=== PATIENT | female | born 1980 | race Caucasian/White ===

== ENCOUNTER 2018-03-17 13:37 | Emergency (ER) | payer MEDICAID ==
[2018-03-17 14:34] LABS: ABSOLUTE BASOPHILS # (AUTO) 0.1 10^3/uL (0.0-0.2); ABSOLUTE EOSINOPHILS # (AUTO) 0.1 10^3/uL (0.0-0.6); ABSOLUTE LYMPHOCYTES (AUTO) 2.1 10^3/uL (0.5-4.7); ABSOLUTE MONOCYTES (AUTO) 0.6 10^3/uL (0.1-1.4); ABSOLUTE NEUT (AUTO) 3.3 10^3/uL (1.7-8.2); BASOPHILS % (AUTO) 1.1 % (0-2); HEMATOCRIT 40.9 % (36.0-47.0); HEMOGLOBIN 13.9 g/dL (12.0-15.5); LYMPHOCYTES % (AUTO) 34.1 % (13-45); MEAN CORPUSCULAR HEMOGLOBIN 32.2 pg (27.0-33.4); MEAN CORPUSCULAR HGB CONC 34.1 g/dL (32.0-36.0); MEAN CORPUSCULAR VOLUME 94 fl (80-97); MONOCYTES % (AUTO) 10.4 % (3-13); PLATELET COUNT 285 10^3/uL (150-450); RED BLOOD COUNT 4.33 10^6/uL (3.72-5.28); RED CELL DISTRIBUTION WIDTH 12.7 % (11.5-14.0); SEGMENTED NEUTROPHILS % (AUTO) 53.4 % (42-78); TOTAL CELLS COUNTED % (AUTO) 100 %; WHITE BLOOD COUNT 6.2 10^3/uL (4.0-10.5)
--- NOTE | 2018-03-17 14:39 | ER Document Report ---
ED Psych Disorder / Suicide - General Chief Complaint: Psych Problem Stated Complaint: PSYCH EVAL Time Seen by Provider: 03/17/18 14:15 Mode of Arrival: Medic Information source: Patient, Emergency Med Personnel, [facility] Records Notes: This 37-year-old female patient was brought to emergency room by EMS for report of abnormal behavior. Apparently someone called mobile crisis to come see the patient, they were late responding so someone called 911. The patient does not have complaints, and there is no known past psychiatric history. There is no one with her, however from previous visits it appears that she lives in the same apartment complex as her mother. TRAVEL OUTSIDE OF THE [place] IN LAST 30 DAYS: No - Related Data Allergies/Adverse Reactions: Penicillins Allergy (Verified 03/02/16 11:13) Past Medical History - General Information source: Patient, Emergency Med Personnel, [facility] Records Cannot obtain history due to: Uncooperative, Altered mental status - Social History Smoking Status: Current Every Day Smoker Cigarette use (# per day): Yes Chew tobacco use (# tins/day): No Smoking Education Provided: No Drug Abuse: Marijuana Occupation: Unemployed Lives with: Family Family History: None, Arthritis, CAD, Hyperlipidemia, Hypertension, Malignancy - Medical History Medical History: Negative - The only medical history that was acquired from her previous visits is possible psoriasis. The patient will not provide any history. Skin Medical History: Reports Hx Psoriasis Past Surgical History: Reports: Hx Section - 2, Hx Myringotomy - Immunizations Immunizations up to date: No Hx Diphtheria, Pertussis, Tetanus Vaccination: No Physical Exam - Vital signs Vitals: Temp Pulse Resp BP Pulse Ox 98 F 79 16 123/84 97 03/17/18 14:35 03/17/18 14:35 03/17/18 14:35 03/17/18 14:35 03/17/18 14:35 - General General appearance: Other - When I first went in see the patient, she was standing at the sink washing her hands vigorously for quite a long time until I had the nurse stop her and turn off the water. Patient stated "I feel really dirty". She also went on to state it had something to do with her being on her period, but she did not want to say the word. She is quite paranoid, smiles, giggles, tries not to answer questions or looks away. Notes: When asked about smoking history, she eventually asked this I mean in general. I stated no specifically the smoke cigarettes and she reluctantly eventually admitted that she does smoke cigarettes. I next asked her if she smoked marijuana, and she smiled and looked away and tried not to admit something that I already knew was true based on prior ER visit. - HEENT Head: Normocephalic, Atraumatic, Other - The head care has been closely cropped and/or shaved, and it is a poorly done job with quite irregular patches on the occipital area. Eyes: Normal Pupils: PERRL - Respiratory Respiratory status: No respiratory distress Breath sounds: Normal - Cardiovascular Rhythm: Regular Heart sounds: Normal auscultation Murmur: No - Abdominal Inspection: Normal Bowel sounds: Normal Tenderness: Nontender - Back Back: Normal - Extremities General upper extremity: Normal inspection General lower extremity: Normal inspection - Neurological Neuro grossly intact: Yes - Psychological Associated symptoms: Flight of ideas, Labile, Manic, Paranoid, Psychomotor agitation, Uncooperative, Other - Disorganized thought process Course - Vital Signs Vital signs: Temp Pulse Resp BP Pulse Ox 98 F 79 16 123/84 97 03/17/18 14:35 03/17/18 14:35 03/17/18 14:35 03/17/18 14:35 03/17/18 14:35 - Laboratory Result Diagrams: 03/17/18 14:20 03/17/18 14:20 Laboratory results interpreted by me: 03/17/18 14:20 Salicylates < 1.0 L Acetaminophen < 10 L Discharge - Discharge Clinical Impression: Manic psychosis Obsessive compulsive disorder Qualifiers: Obsessive-compulsive disorder type: unspecified Qualified Code(s): F42.9 - Obsessive-compulsive disorder, unspecified Condition: Stable Disposition: PSYCH HOSP/UNIT Referrals: GUTIERREZ GARCIA MD [Primary Care Provider] - Follow up as needed
[2018-03-17 14:56] LABS: ALANINE AMINOTRANSFERASE 24 U/L (9-52); ALBUMIN 4.7 g/dL (3.5-5.0); ALKALINE PHOSPHATASE 56 U/L (38-126); ANION GAP 13 (5-19); ASPARTATE AMINO TRANSFERASE 27 U/L (14-36); BILIRUBIN,DIRECT 0.2 mg/dL (0.0-0.4); BILIRUBIN,TOTAL 1.1 mg/dL (0.2-1.3); BLOOD UREA NITROGEN 12 mg/dL (7-20); CALCIUM 9.7 mg/dL (8.4-10.2); CARBON DIOXIDE 26 mmol/L (22-30); CHLORIDE 102 mmol/L (98-107); GLUCOSE 93 mg/dL (75-110); TOTAL PROTEIN 7.9 g/dL (6.3-8.2)
[2018-03-17 14:57] LABS: ACETAMINOPHEN < 10 ug/mL (10-30); ALCOHOL < 10 mg/dL (NONE DETECTED); SALICYLATE < 1.0 mg/dL (2.0-20.0)
[2018-03-17] MEDS ORDERED: OLANZAPINE 5 MG TABLET PO ONE (15:34)
[2018-03-17] MEDS ORDERED: BENZTROPINE MESYLATE 1 MG TABLET PO SCH (15:45)
--- NOTE | 2018-03-17 16:50 | PSYCHOLOGICAL NOTE ---
Psych Note - Psych Note Psych Note: Reason for Consult: psychosis; manic This 37-year-old female patient was brought to emergency room by EMS for report of abnormal behavior. Apparently someone called mobile crisis to come see the patient, they were late responding so someone called 911. The patient does not have complaints, and there is no known past psychiatric history. There is no one with her, however from previous visits it appears that she lives in the same apartment complex as her mother. Patient is unable to focus on answering any questions. She is unable to complete sentences and quickly changes topics; ie disorganizing and flying of thoughts. Patient is observed demonstrating paranoia with concerns of being controlled. Attending physician noted the patient was repeatedly washing her hands while he was attempting to engage her. Medication recommendations per [facility]'s contracted psychiatrist Dr. Alireza GRAVES are as follows 1. Zyprexa 10 mg once 2. Zyprexa 5 mg twice daily 3. Cogentin 1 mg daily Diagnosis 298.9 (F29) unspecified psychotic episode Impression\plan: Patient is recommended for IVC. Patient is demonstrating disorganized and flight of thought processes. Patient is unable to complete full sentence before moving onto her next thought. Patient's responses often do not make sense and demonstrate a level of paranoia. Medication recommendations have been provided. Dr. Murdock was consulted and the care management this patient; attending physician is agreement with recommendations and disposition.
--- NOTE | 2018-03-17 16:53 | EKG REPORT ---
SEVERITY:- NORMAL ECG - SINUS RHYTHM : Confirmed by: Estuardo Nevarez MD 17-Mar-2018 16:52:20
[2018-03-17 17:24] LABS: APPEARANCE,URINE CLEAR; BILIRUBIN,URINE NEGATIVE (NEGATIVE); COLOR,URINE YELLOW; GLUCOSE, URINE NEGATIVE (NEGATIVE); KETONES,URINE NEGATIVE (NEGATIVE); LEUKOCYTE ESTERASE,URINE NEGATIVE (NEGATIVE); NITRITE,URINE NEGATIVE (NEGATIVE); PROTEIN,URINE NEGATIVE (NEGATIVE); URINE SPECIFIC GRAVITY 1.011
[2018-03-17 17:41] LABS: URINE AMPHETAMINES SCREEN NEGATIVE; URINE BARBITURATES SCREEN NEGATIVE; URINE BENZODIAZEPINES SCREEN NEGATIVE; URINE COCAINE SCREEN NEGATIVE; URINE MARIJUANA (THC) SCREEN NEGATIVE; URINE METHADONE SCREEN NEGATIVE; URINE PHENCYCLIDINE SCREEN NEGATIVE
[2018-03-17] MEDS: OLANZAPINE 5 MG TABLET PO SCH (22:00)
--- NOTE | 2018-03-18 10:06 | ER Document Report ---
Doctor's Note Notes: 03/18/18 10:05 Rounds: Chart reviewed and patient sleeping and did not respond to my calling her name a couple of times so I did not awaken her. Patient is here because of paranoid and psychotic behavior. She shaved her head. Has been started on Zyprexa and Cogentin. Labs are all normal. Vital signs are all normal. Patient appears to be medically stable for transfer or discharge. Maryann Cosme MD
[2018-03-18] MEDS: OLANZAPINE 5 MG TABLET PO SCH (18:27)
[2018-03-18] MEDS ORDERED: BENZTROPINE MESYLATE 1 MG TABLET PO ONE (20:45)
[2018-03-19] MEDS ORDERED: NICOTINE 14 MG/24 HR PATCH.TD24 TD ONE (09:27)
--- NOTE | 2018-03-19 09:28 | ER Document Report ---
Doctor's Note Notes: 03/19/18 09:25 Medical rounds: Chart reviewed and patient interviewed briefly. Vital signs are normal. Laboratory values satisfactory. On examination, the patient is alert and cooperative. Thought processes are still disorganized. She has a strong orthodox preoccupation. She denies any somatic complaints, however she states she thinks she is having nicotine withdrawal, as she was a heavy smoker prior to her admission here. A nicotine patch will be ordered. She remains medically stable.
[2018-03-19] MEDS ORDERED: OLANZAPINE 5 MG TABLET PO SCH (10:00)
--- NOTE | 2018-03-19 10:31 | PSYCHOLOGICAL NOTE ---
Psych Note - Psych Note Psych Note: Reason for Consult: psychosis; manic This 37-year-old female patient was brought to emergency room by EMS for report of abnormal behavior. Apparently someone called mobile crisis to come see the patient, they were late responding so someone called 911. The patient does not have complaints, and there is no known past psychiatric history. There is no one with her, however from previous visits it appears that she lives in the same apartment complex as her mother. Check in with patient conducted: Patient is still demonstrating flight of thought and asking multiple questions of clinician such as "which Chapstick should I use...which one is the right one " and "what will happen if someone sits in first class but is not Classy." Patient still continues to demonstrate some confusion however is able to complete her sentences when speaking with clinician. Patient asked for shower and then is noted to walk into the shower come back out and state I am not doing is here returned the items to his sitter and then walked back into the bathroom. Medication recommendations per [facility]'s contracted psychiatrist Dr. Alireza GRAVES are as follows 1. Please discontinue Zyprexa 5 mg 2. Please start Haldol 5 mg twice daily 3. please continue Cogentin 1 mg daily Diagnosis 298.9 (F29) unspecified psychotic episode Impression\\plan: Patient is recommended to continue IVC. Patient is demonstrating disorganized and flight of thought processes. Patient is unable to complete full sentence before moving onto her next thought. Patient's responses often do not make sense and demonstrate a level of paranoia. Medication recommendations have been provided. Dr. Murdock was consulted and the care management this patient; attending physician is agreement with recommendations and disposition.
[2018-03-19] MEDS: BENZTROPINE MESYLATE 1 MG TABLET PO SCH (12:10)
[2018-03-19] MEDS: HALOPERIDOL 5 MG TABLET PO SCH ×2 (12:13→18:40)
[2018-03-20 08:23] VITALS: BP 120/79
--- NOTE | 2018-03-20 09:37 | ER Document Report ---
Doctor's Note Notes: 03/20/18 09:37 37-year-old female IVC for acute psychotic event. Vital signs have been stable , labs have been stable. The nurses who saw him yesterday stating that she is actually improved. She does still seem to be a little disheveled. We will continue to observe her. 03/20/18 10:16
[2018-03-20] MEDS: BENZTROPINE MESYLATE 1 MG TABLET PO SCH (09:59)
--- NOTE | 2018-03-21 11:16 | PSYCHOLOGICAL NOTE ---
Psych Note - Psych Note Psych Note: Reason for Consult: psychosis; manic This 37-year-old female patient was brought to emergency room by EMS for report of abnormal behavior. Apparently someone called mobile crisis to come see the patient, they were late responding so someone called 911. The patient does not have complaints, and there is no known past psychiatric history. There is no one with her, however from previous visits it appears that she lives in the same apartment complex as her mother. Check in with patient conducted: Patient is quite this morning. Patient is pleasant and greets clinician but appears to still be slightly confused. Clinician spoke with patient's mother who discloses the patient does have substance abuse in her history and is concerned the patient was given a "Xani Bar" 2 weeks ago and has been acting this way since. She disclosed that when the patient shaved her hair on Monday they knew they had to ask for help because she was not getting any better and they are concerned about what she would do next. She denies history of mental health. Medication recommendations per [facility]'s contracted psychiatrist Dr. Alireza GRAVES are as follows 1. Please start Haldol 5 mg twice daily 2. please continue Cogentin 1 mg daily Diagnosis 298.9 (F29) unspecified psychotic episode Impression\\plan: Patient is recommended to continue IVC. Patient was accepted to [facility]; transportation will occur today. Dr. Murdock was consulted and the care management this patient; attending physician is agreement with recommendations and disposition.
== END 2018-03-20 14:10 ==
LOC: ER 13:37
DX: F30.2 Manic episode, severe with psychotic symptoms (principal); F42.9 Obsessive-compulsive disorder, unspecified; F17.210 Nicotine dependence, cigarettes, uncomplicated; F12.10 Cannabis abuse, uncomplicated; Z88.0 Allergy status to penicillin
CPT/HCPCS: 93005; 99285; 36415; 80307 ×4; 84703; 85025; 80053; 81001; 93010; J3490 ×8

== ENCOUNTER 2019-07-31 15:05 | Emergency (ER) | payer MEDICAID, OTHER ==
[2019-07-31 15:11] VITALS: BP 101/63
--- NOTE | 2019-07-31 15:25 | ER Document Report ---
HPI - HPI Patient complains to provider of: med refill Time Seen by Provider: 07/31/19 15:15 Onset: Other - States she does not have enough to get to her visit Quality of pain: No pain Severity: None Pain Level: Denies Context: 39-year-old female presented to ED for complaint of need for refill on the Risperdal and Lexapro. Patient does not have a bottle for the 2 prescriptions and states she did not bring a picture of the bottles. Associated Symptoms: Other - med refill Exacerbated by: Denies Relieved by: Denies Similar symptoms previously: Yes Recently seen / treated by doctor: Yes - ROS ROS below otherwise negative: Yes - CONSTITUTIONAL Constitutional: DENIES: Fever, Chills - EENT EENT: DENIES: Sore Throat, Ear Pain, Nasal Drainage-Clear, Nasal Drainage- Purulent, Congestion, Eye problems - NEURO Neurology: DENIES: Headache, Weakness, Vision blurred, Dizzinesss / Vertigo - CARDIOVASCULAR Cardiovascular: DENIES: Chest pain - RESPIRATORY Respiratory: DENIES: Trouble Breathing, Coughing - GASTROINTESTINAL Gastrointestinal: DENIES: Abdominal Pain, Nausea, Patient vomiting, Diarrhea, Constipation, Black / Bloody Stools - URINARY Urinary: DENIES: Dysuria, Urgency, Frequency - REPRODUCTIVE Reproductive: DENIES: :, Postmenopausal, Abnormal bleeding / discharge - MUSCULOSKELETAL Musculoskeletal: DENIES: Extremity pain, Back Pain, Neck Pain, Swelling - DERM Skin Color: Normal Skin Problems: None Past Medical History - General Information source: Patient - Social History Smoking Status: Current Every Day Smoker Cigarette use (# per day): Yes - Half pack a day Smoking Education Provided: Yes - 4 minutes Frequency of alcohol use: None Drug Abuse: None Occupation: [employer] Lives with: Spouse/Significant other Family History: None, Arthritis, CAD, Hyperlipidemia, Hypertension, Malignancy Patient has suicidal ideation: No Patient has homicidal ideation: No - Past Medical History Cardiac Medical History: Reports: None Pulmonary Medical History: Reports: None EENT Medical History: Reports: None Neurological Medical History: Reports: None Endocrine Medical History: Reports: None Renal/ Medical History: Reports: None Malignancy Medical History: Reports: None GI Medical History: Reports: None Musculoskeletal Medical History: Reports None Skin Medical History: Reports Hx Psoriasis Psychiatric Medical History: Reports: Hx Anxiety, Hx Bipolar Disorder, Hx Depression, Hx Schizophrenia Traumatic Medical History: Reports: None Infectious Medical History: Reports: None Past Surgical History: Reports: Hx Section - 2, Hx Myringotomy - Immunizations Immunizations up to date: No Hx Diphtheria, Pertussis, Tetanus Vaccination: No Vertical Provider Document - CONSTITUTIONAL Agree With Documented VS: Yes Exam Limitations: No Limitations General Appearance: WD/WN, No Apparent Distress - INFECTION CONTROL TRAVEL OUTSIDE OF THE [place] IN LAST 30 DAYS: No - HEENT HEENT: Atraumatic, Normal ENT Exam, Normocephalic, PERRLA - NECK Neck: Normal Inspection, Supple, Thyroid Normal - RESPIRATORY Respiratory: Breath Sounds Normal, No Respiratory Distress, Chest Non-Tender - CARDIOVASCULAR Cardiovascular: Regular Rate, Regular Rhythm, No Murmur - GI/ABDOMEN Gastrointestinal: Abdomen Soft, Abdomen Non-Tender, No Organomegaly, Normal Bowel Sounds - MUSCULOSKELETAL/EXTREMETIES Musculoskeletal/Extremeties: MAEW, FROM, Non-Tender - NEURO Level of Consciousness: Awake, Alert, Appropriate Motor/Sensory: No Motor Deficit, No Sensory Deficit, No Pronator Drift Deep Tendon Reflexes: 2+ - DERM Integumentary: Warm, Dry, No Rash Course - Re-evaluation Re-evalutation: 07/31/19 22:02 She was given a refill for her medications and instructed to follow-up with her mental health provider as instructed and that she would not be getting more refills in the emergency room. Patient verbalized understanding and agreement with treatment plan. - Vital Signs Vital signs: Temp Pulse Resp BP Pulse Ox 97.9 F 70 18 101/63 100 07/31/19 15:09 07/31/19 15:09 07/31/19 15:09 07/31/19 15:09 07/31/19 15:09 Discharge - Discharge Clinical Impression: Medication refill Condition: Stable Disposition: HOME, SELF-CARE Additional Instructions: I have given you a refill on these 2 medications after you brought me in a pictu re of the 2 prescriptions. You will not get anymore refills to the ED. Please be sure to keep your appointment with your mental health provider to get your prescriptions in the future This is a one-time refill and then you need your mental health worker to refill them FOLLOW-UP CARE: If you have been referred to a physician for follow-up care, call the physicians office for an appointment as you were instructed or within the next two days. If you experience worsening or a significant change in your symptoms, notify the physician immediately or return to the Emergency Department at any time for re-evaluation. Prescriptions: Escitalopram Oxalate [Lexapro 10 mg Tablet] 10 mg PO QHS #30 tablet Risperidone [Risperdal] 2 mg PO QPM #30 tablet Referrals: GUTIERREZ GARCIA MD [Primary Care Provider] - Follow up as needed
== END 2019-07-31 15:45 | disposition home or self-care (01) ==
LOC: ER 15:05
DX: Z76.0 Encounter for issue of repeat prescription (principal); F41.9 Anxiety disorder, unspecified; F31.9 Bipolar disorder, unspecified; F17.210 Nicotine dependence, cigarettes, uncomplicated; Z71.6 Tobacco abuse counseling

== ENCOUNTER 2020-03-04 15:19 | Emergency (ER) | payer MEDICAID ==
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
[2020-03-04] MEDS ORDERED: CHLORPROMAZINE HCL INJ 25 MG/1 ML AMPULE IM ONE (16:23)
--- NOTE | 2020-03-04 16:31 | ER Document Report ---
ED Psych Disorder / Suicide - General Chief Complaint: Psych Problem Stated Complaint: IVC W/PAPERS Time Seen by Provider: 03/04/20 15:25 Primary Care Provider: GUTIERREZ GARCIA MD [Primary Care Provider] - Follow up as needed Mode of Arrival: Ambulatory Information source: Patient Notes: Patient presents stating that she was just released from senior care 2 days ago and has not been able to get her medications refilled. Patient was noted to be jumping out in traffic attempting to talk to people in the vehicles. Patient denies any suicidal homicidal ideation. Patient has a history of bipolar disorder and schizoaffective disorder. TRAVEL OUTSIDE OF THE [place] IN LAST 30 DAYS: No - HPI Patient complains to provider of: Agitated, Bizarre behavior. No: Homicidal plan, Suicidal plan Onset: This morning Quality of pain: No pain Suicide Risk Factors: Bipolar. No: Hallucinations Situational problems related to: Legal problems Associated symptoms: Agitated, Restlessness Recently seen / treated by doctor: No - Related Data Allergies/Adverse Reactions: Penicillins Allergy (Verified 03/04/20 15:21) Home Medications: buspirone. Risperdone Past Medical History - General Information source: Patient, Law Enforcement - Social History Smoking Status: Current Every Day Smoker Frequency of alcohol use: Rare Drug Abuse: None Family History: None, Arthritis, CAD, Hyperlipidemia, Hypertension, Malignancy Patient has homicidal ideation: No Renal/ Medical History: Denies: Hx Peritoneal Dialysis Skin Medical History: Reports Hx Psoriasis Psychiatric Medical History: Reports: Hx Anxiety, Hx Bipolar Disorder, Hx Depression, Hx Schizoaffective Disorder Past Surgical History: Reports: Hx Section - 2, Hx Myringotomy - Immunizations Immunizations up to date: No Hx Diphtheria, Pertussis, Tetanus Vaccination: No Review of Systems - Review of Systems Constitutional: No symptoms reported. denies: Recent illness EENT: No symptoms reported Cardiovascular: No symptoms reported Respiratory: No symptoms reported Gastrointestinal: No symptoms reported. denies: Vomiting Genitourinary: No symptoms reported Female Genitourinary: No symptoms reported Musculoskeletal: No symptoms reported. denies: Neck pain Skin: No symptoms reported Hematologic/Lymphatic: No symptoms reported Neurological/Psychological: Other - Erratic behavior. denies: Confusion, Homicidal ideation, Suicidal ideation Physical Exam - Vital signs Vitals: Temp 98.6 F 03/04/20 15:21 - General General appearance: Appears well, Alert In distress: None - HEENT Head: Normocephalic, Atraumatic Eyes: Normal Nasal: Normal Mouth/Lips: Normal Neck: Normal, Supple. No: Meningismus - Respiratory Respiratory status: No respiratory distress Chest status: Nontender Breath sounds: Normal. No: Rales, Rhonchi, Stridor, Wheezing Chest palpation: Normal - Cardiovascular Rhythm: Regular Heart sounds: S1 appreciated, S2 appreciated Murmur: No - Abdominal Inspection: Normal Distension: No distension Tenderness: Nontender - Back Back: Normal, Nontender. No: CVA tenderness - Extremities General upper extremity: Normal inspection, Normal strength General lower extremity: Normal inspection, Normal strength - Neurological Neuro grossly intact: Yes Kia Coma Scale Eye Opening: Spontaneous Kia Coma Scale Verbal: Oriented Cando Coma Scale Motor: Obeys Commands Cando Coma Scale Total: 15 - Psychological Associated symptoms: Agitated, Psychomotor agitation - Skin Skin Temperature: Warm Skin Moisture: Dry Skin Color: Normal Course - Re-evaluation Re-evalutation: 03/04/20 18:01 Patient medically clear for discharge or transfer pending mental health evaluation. Mental health team advises adding Zyprexa 5 mg twice a day, Cogentin 1 mg daily, and Prozac 10 mg daily. 03/05/20 12:08 Patient continues easily agitated with pressured speech pacing in room. Patient requesting a cigarette. Will provide patient with nicotine patch. Patient is medically clear for transfer at this time. Mental health team is arranging for transfer to the [facility] for additional treatment. PHYSICAL EXAMINATION: GENERAL: Well-appearing HEAD: Atraumatic, normocephalic. EYES: sclera anicteric, conjunctiva are normal. ENT: nares patent. Moist mucous membranes. NECK: Normal range of motion, supple without lymphadenopathy LUNGS: CTAB and equal. No wheezes rales or rhonchi. HEART: Regular rate and rhythm without murmurs EXTREMITIES: Normal range of motion, no pitting edema. No cyanosis. BACK: No CVA tenderness NEUROLOGICAL: Cranial nerves grossly intact. Normal gait. PSYCH: Pressured speech, psychomotor agitation SKIN: Warm, Dry, normal turgor, no rashes or lesions noted - Vital Signs Vital signs: Temp Pulse Resp BP Pulse Ox 97.5 F 76 20 95/60 L 100 03/05/20 11:45 03/05/20 11:45 03/05/20 11:45 03/05/20 11:45 03/05/20 11:45 - Laboratory Result Diagrams: 03/04/20 16:15 03/04/20 16:15 Laboratory results interpreted by me: 03/04/20 03/04/20 16:15 16:15 Urine Blood SMALL H Salicylates < 1.0 L Acetaminophen < 10 L Discharge - Discharge Clinical Impression: Manic behavior Schizoaffective disorder Qualifiers: Schizoaffective disorder type: unspecified Qualified Code(s): F25.9 - Schizoaffective disorder, unspecified Bipolar disorder Qualifiers: Active/Remission status: currently active Current bipolar episode type: manic Current episode severity: unspecified Qualified Code(s): F31.10 - Bipolar disorder, current episode manic without psychotic features, unspecified Condition: Good Disposition: OTHER Referrals: GUTIERREZ GARCIA MD [Primary Care Provider] - Follow up as needed
[2020-03-04 16:37] LABS: APPEARANCE,URINE CLEAR; BILIRUBIN,URINE NEGATIVE (NEGATIVE); COLOR,URINE STRAW; GLUCOSE, URINE NEGATIVE (NEGATIVE); KETONES,URINE NEGATIVE (NEGATIVE); LEUKOCYTE ESTERASE,URINE NEGATIVE (NEGATIVE); NITRITE,URINE NEGATIVE (NEGATIVE); PROTEIN,URINE NEGATIVE (NEGATIVE); URINE SPECIFIC GRAVITY 1.003; UROBILINOGEN,URINE NEGATIVE mg/dL (<2.0)
[2020-03-04 16:45] LABS: ABSOLUTE BASOPHILS # (AUTO) 0.1 10^3/uL (0.0-0.2); ABSOLUTE EOSINOPHILS # (AUTO) 0.1 10^3/uL (0.0-0.6); ABSOLUTE LYMPHOCYTES (AUTO) 2.4 10^3/uL (0.5-4.7); ABSOLUTE MONOCYTES (AUTO) 0.5 10^3/uL (0.1-1.4); ABSOLUTE NEUT (AUTO) 4.4 10^3/uL (1.7-8.2); EOSINOPHILS % (AUTO) 1.1 % (0-6); HEMATOCRIT 39.7 % (36.0-47.0); HEMOGLOBIN 13.6 g/dL (12.0-15.5); LYMPHOCYTES % (AUTO) 32.2 % (13-45); MEAN CORPUSCULAR HEMOGLOBIN 31.5 pg (27.0-33.4); MEAN CORPUSCULAR HGB CONC 34.4 g/dL (32.0-36.0); MEAN CORPUSCULAR VOLUME 91 fl (80-97); MONOCYTES % (AUTO) 6.8 % (3-13); PLATELET COUNT 254 10^3/uL (150-450); RED BLOOD COUNT 4.34 10^6/uL (3.72-5.28); RED CELL DISTRIBUTION WIDTH 13.5 % (11.5-14.0); SEGMENTED NEUTROPHILS % (AUTO) 58.9 % (42-78); TOTAL CELLS COUNTED % (AUTO) 100 %; WHITE BLOOD COUNT 7.5 10^3/uL (4.0-10.5)
[2020-03-04 16:46] LABS: URINE AMPHETAMINES SCREEN NEGATIVE; URINE BARBITURATES SCREEN NEGATIVE; URINE BENZODIAZEPINES SCREEN NEGATIVE; URINE COCAINE SCREEN NEGATIVE; URINE MARIJUANA (THC) SCREEN NEGATIVE; URINE METHADONE SCREEN NEGATIVE; URINE PHENCYCLIDINE SCREEN NEGATIVE
[2020-03-04 17:12] LABS: ACETAMINOPHEN < 10 ug/mL (10-30); ALBUMIN 4.6 g/dL (3.5-5.0); ALCOHOL 51 mg/dL (NONE DETECTED); ALKALINE PHOSPHATASE 55 U/L (38-126); ANION GAP 9 (5-19); ASPARTATE AMINO TRANSFERASE 24 U/L (14-36); BILIRUBIN,TOTAL 0.3 mg/dL (0.2-1.3); BLOOD UREA NITROGEN 7 mg/dL (7-20); CALCIUM 9.4 mg/dL (8.4-10.2); CARBON DIOXIDE 27 mmol/L (22-30); CHLORIDE 104 mmol/L (98-107); GLUCOSE 79 mg/dL (75-110); POTASSIUM 4.1 mmol/L (3.6-5.0); SALICYLATE < 1.0 mg/dL (2.0-20.0); TOTAL PROTEIN 7.7 g/dL (6.3-8.2)
[2020-03-04] MEDS ORDERED: OLANZAPINE 5 MG TABLET PO SCH (18:00)
[2020-03-04] MEDS: BENZTROPINE MESYLATE 1 MG TABLET PO SCH (18:40)
[2020-03-04] MEDS ORDERED: OLANZAPINE 5 MG TABLET PO ONE (18:43)
[2020-03-04] MEDS: FLUOXETINE HCL 20 MG/5 ML UDCUP PO SCH (18:54)
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
--- NOTE | 2020-03-04 23:36 | EKG REPORT ---
SEVERITY:- ABNORMAL ECG - SINUS TACHYCARDIA LEFT ATRIAL ABNORMALITY : Confirmed by: Elpidio Madsen 04-Mar-2020 23:35:20
[2020-03-05] MEDS ORDERED: OLANZAPINE 5 MG TABLET PO SCH (10:00)
[2020-03-05] MEDS: FLUOXETINE HCL 20 MG/5 ML UDCUP PO SCH (11:00)
[2020-03-05] MEDS: BENZTROPINE MESYLATE 1 MG TABLET PO SCH (11:00)
[2020-03-05 12:03] VITALS: BP 95/60
[2020-03-05] MEDS ORDERED: NICOTINE 21 MG/24 HR PATCH.TD24 TD ONE (12:07)
== END 2020-03-05 12:43 | disposition other institution (70) ==
LOC: ER 15:19
DX: F20.0 Paranoid schizophrenia (principal); F31.10 Bipolar disorder, current episode manic without psychotic features, unspecified; Z88.0 Allergy status to penicillin
CPT/HCPCS: 93005; 99285; 96372; 36415; 80307 ×4; 84703; 85025; 80053; 81001; 93010; J3490 ×7; J3230

== ENCOUNTER 2020-03-30 18:04 | Emergency (ER) | payer MEDICAID, OTHER ==
[2020-03-30] MEDS ORDERED: HALOPERIDOL LACTATE INJ 5 MG/1 ML VIAL IM ONE (18:27)
[2020-03-30] MEDS ORDERED: LORAZEPAM INJ 2 MG/1 ML VIAL IM ONE (18:28)
[2020-03-30] MEDS ORDERED: DIPHENHYDRAMINE HCL 50 MG/ML VIAL IM ONE (18:28)
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
--- NOTE | 2020-03-30 19:24 | ER Document Report ---
Doctor's Note Notes: 03/30/20 18:15 Met with Patient upon arrival to room 46. She was noted to be in the company of [employer], in handcuffs and leg shackles. [place] advised the Patient is in custody for disorderly conduct and on an $800 secured suarez. Patient was observed to be yelling, screaming, and physically very manic as evidenced by her tangential and disorganized speech, excessive energy levels, and restless, rapid limb movement. She made threats to get a gun and shoot herself if no one would listen to her. She aggressively moved towards this Provider while trying to make a point. Spoke with [place] and advised the Nail Setter would be contacted to assist with request to change secured to unsecured suarez as Patient was being placed on full IVC and it was not conducive to have the deputy stay with the Patient over the next few days while inpatient psychiatric placement was secured. Nail Setter indicated the Patient would be required to sign a release order changing the suarez to unsecured and a deputy could bring it to the hospital for the Patient to sign and return it to the Magistrates office immediately following her signature. Patient will be more fully evaluated upon some stabilization. She has received an as needed medication regiment to assist with calming her down.
[2020-03-30 19:39] LABS: ABSOLUTE BASOPHILS # (AUTO) 0.1 10^3/uL (0.0-0.2); ABSOLUTE EOSINOPHILS # (AUTO) 0.1 10^3/uL (0.0-0.6); ABSOLUTE LYMPHOCYTES (AUTO) 1.3 10^3/uL (0.5-4.7); ABSOLUTE MONOCYTES (AUTO) 0.7 10^3/uL (0.1-1.4); ABSOLUTE NEUT (AUTO) 7.5 10^3/uL (1.7-8.2); BASOPHILS % (AUTO) 0.9 % (0-2); EOSINOPHILS % (AUTO) 0.5 % (0-6); HEMATOCRIT 38.8 % (36.0-47.0); HEMOGLOBIN 13.2 g/dL (12.0-15.5); LYMPHOCYTES % (AUTO) 13.6 % (13-45); MEAN CORPUSCULAR HEMOGLOBIN 31.4 pg (27.0-33.4); MEAN CORPUSCULAR VOLUME 93 fl (80-97); MONOCYTES % (AUTO) 6.8 % (3-13); PLATELET COUNT 290 10^3/uL (150-450); RED CELL DISTRIBUTION WIDTH 13.8 % (11.5-14.0); SEGMENTED NEUTROPHILS % (AUTO) 78.2 % (42-78); TOTAL CELLS COUNTED % (AUTO) 100 %; WHITE BLOOD COUNT 9.6 10^3/uL (4.0-10.5)
[2020-03-30 19:56] LABS: ALBUMIN 4.5 g/dL (3.5-5.0); ALKALINE PHOSPHATASE 47 U/L (38-126); ANION GAP 8 (5-19); ASPARTATE AMINO TRANSFERASE 28 U/L (14-36); BILIRUBIN,TOTAL 0.5 mg/dL (0.2-1.3); BLOOD UREA NITROGEN 16 mg/dL (7-20); CALCIUM 9.3 mg/dL (8.4-10.2); CARBON DIOXIDE 25 mmol/L (22-30); CHLORIDE 104 mmol/L (98-107); GLUCOSE 88 mg/dL (75-110); POTASSIUM 3.7 mmol/L (3.6-5.0); TOTAL PROTEIN 7.6 g/dL (6.3-8.2)
[2020-03-30 20:02] LABS: ACETAMINOPHEN < 10 ug/mL (10-30); ALCOHOL < 10 mg/dL (NONE DETECTED); SALICYLATE < 1.0 mg/dL (2.0-20.0)
--- NOTE | 2020-03-31 01:07 | EKG REPORT ---
SEVERITY:- NORMAL ECG - SINUS RHYTHM : Confirmed by: Beulah Hendrickson MD 31-Mar-2020 01:07:00
[2020-03-31] MEDS ORDERED: HALOPERIDOL LACTATE INJ 5 MG/1 ML VIAL IM ONE (09:58)
[2020-03-31 10:53] LABS: APPEARANCE,URINE TURBID; BILIRUBIN,URINE NEGATIVE (NEGATIVE); GLUCOSE, URINE NEGATIVE (NEGATIVE); KETONES,URINE NEGATIVE (NEGATIVE); LEUKOCYTE ESTERASE,URINE NEGATIVE (NEGATIVE); NITRITE,URINE NEGATIVE (NEGATIVE); PROTEIN,URINE 30 mg/dL (NEGATIVE)
[2020-03-31 11:06] LABS: COLOR,URINE DARK YELLOW; URINE AMPHETAMINES SCREEN UNCONFIRMED POSITIVE; URINE BARBITURATES SCREEN NEGATIVE; URINE BENZODIAZEPINES SCREEN UNCONFIRMED POSITIVE; URINE COCAINE SCREEN NEGATIVE; URINE MARIJUANA (THC) SCREEN NEGATIVE; URINE METHADONE SCREEN NEGATIVE; URINE PHENCYCLIDINE SCREEN NEGATIVE
[2020-03-31] MEDS: BENZTROPINE MESYLATE 1 MG TABLET PO SCH (16:24)
--- NOTE | 2020-03-31 17:39 | ER Document Report ---
Doctor's Note Notes: 03/31/20 17:38 Patient's vital signs and previous labs, diagnostic images reviewed. Reviewed mental health notes, nurse's notes and previous providers notes. VSS. Pt is in no distress at this time. Denies any SI or HI. General: inappropriate Heart: RRR Lungs: CTAB Psych: aggressive A/P: Continue monitoring and rec's per MH. Normal diet Consider placement.
[2020-03-31] MEDS: OLANZAPINE 5 MG TABLET PO SCH (19:45)
[2020-04-01] MEDS ORDERED: HALOPERIDOL LACTATE INJ 5 MG/1 ML VIAL ONE (07:51)
[2020-04-01] MEDS ORDERED: HALOPERIDOL LACTATE INJ 5 MG/1 ML VIAL IM ONE (07:51)
--- NOTE | 2020-04-01 07:57 | ER Document Report ---
Doctor's Note Notes: 04/01/20 07:56 Patient is very aggressive yelling at the staff running in and out of the room stating she does not need to be in the emergency room she needs to be going home. Patient was ordered 5 mg of Haldol IM now.
[2020-04-01] MEDS: BENZTROPINE MESYLATE 1 MG TABLET PO SCH (10:14)
[2020-04-01] MEDS: OLANZAPINE 5 MG TABLET PO SCH ×2 (10:14→17:53)
[2020-04-01] MEDS: RISPERIDONE 0.25 MG TABLET PO SCH ×2 (13:15→17:53)
--- NOTE | 2020-04-01 13:50 | PSYCHOLOGICAL NOTE ---
Psych Note - Psych Note Date seen by psych provider: 03/31/20 Psych Note: Patient is a 39 year old female who presented to the ED last evening via [facility] after legal issues but then presenting manic (screaming, yelling, irritable, pressured speech, flight of ideas). She was subsequently put on a FULL IVC. This morning patient was administered Haldol Intramuscular for additional stabilization. Per attending nurse she was cooperative. UDS positive for Amphetamines and Benzodiazepines (Benzos likely from Ativan administered in ED). DSS/CPS worker Elaine ([phone] office, cell) called and spoke to ED Nurse, stated involvement due to patient's daughter and patient's behav iors. She tried to make a visit but patient's mental state made an interview not possible. ED Nurse noted patient said she took some pills yesterday. Chart review revealed patient has been seen in the ED for mental health before. Her last visit for mental health was at the beginning of the month where she was manic (not to severity of this visit) and had been of medication a couple days. She has a history of Schizoaffective Bipolar Type. Today started placement efforts as it it felt patient will likely need longer duration for stabilization. At 1823 called DSS/CPS worker's cell phone. No answer. Got voice mail. Left message explaining current plan of care: IVC, seeking placement and scheduled medications started. Clinical Impression: Ayesha Positive for Amphetamines Medication recommendations made by the psychiatric medication provider Dr. Alireza GRAVES., includes: Add Zyprexa 5MG by mouth or intramuscular twice a day for mood stabilization/i mpulse control Add Cogentin 1MG by mouth or intramuscular daily to curb tremor side effects often associated with antipsychotic medications Impression/Plan: Recommendation to maintain FULL IVC. Patient presented in extremely manic state (yelling, screaming, irritable, pressured speech, flight of ideas). Scheduled medication put in place today. Placement efforts started. DSS/CPS worker was left a voice mail regarding plan of care. Consulted with Dr. Murdock regarding the management and care of patient. ED Physician in agreement with recommendations.
--- NOTE | 2020-04-01 19:01 | ER Document Report ---
Doctor's Note Notes: 04/01/20 18:59 Patient's vital signs and previous labs reviewed. Patient is very frustrated at this time. States that she has pneumonia" and is tired of being locked up and is places that she cannot get things accomplished. Denies any suicidal or homicidal ideations. States that if she were to have any hallucinations she would not tell us that she does not lose her kids. Patient rolls over and states that if I could share information with mental health therapy appreciated. General: Frustrated, alert Psych: Aggressive Skin: dry, warm Extremities: Moves all 4 quadrants spontaneously
--- NOTE | 2020-04-01 20:52 | PSYCHOLOGICAL NOTE ---
Psych Note - Psych Note Date seen by psych provider: 04/01/20 Psych Note: Patient is a 39 year old female who presented to the ED last evening via [facility] after legal issues but then presenting manic (screaming, yelling, irritable, pressured speech, flight of ideas). She was subsequently put on a FULL IVC. Patient continues to demonstrate manic behavior. Patient is frequently coming out of her room making random comments. Patient has flight of ideas and pressured speech. Clinical Impression: Ayesha Positive for Amphetamines Medication recommendations made by the psychiatric medication provider Dr. Alireza GRAVES., includes: Zyprexa 5MG twice a day for mood stabilization/impulse control Cogentin 1MG daily to curb tremor side effects often associated with antipsychotic medications Impression/Plan: Recommendation to maintain FULL IVC. Patient continues to present in extremely manic state (yelling, screaming, irritable, pressured speech, flight of ideas). Dr. Murdock was consulted to care management of this patient; tending physicians in agreement with recommendations and disposition. Case management [facility]-patient was originally accepted however due to the need for PRN medication patient was no longer able to be transported to [facility]. [facility] reports patient cannot be considered for placement until 24 hours of no PRN medications [facility]
[2020-04-02] MEDS: OLANZAPINE 5 MG TABLET PO SCH (10:27)
[2020-04-02] MEDS: BENZTROPINE MESYLATE 1 MG TABLET PO SCH (10:28)
[2020-04-02] MEDS: RISPERIDONE 0.25 MG TABLET PO SCH (10:28)
[2020-04-02 12:31] VITALS: BP 100/82
--- NOTE | 2020-04-02 15:44 | PSYCHOLOGICAL NOTE ---
Psych Note - Psych Note Date seen by psych provider: 04/02/20 Time seen by psych provider: 10:00 Psych Note: Patient is a 39 year old female who presented to the ED last evening via [facility] after legal issues but then presenting manic (screaming, yelling, irritable, pressured speech, flight of ideas). She was subsequently put on a FULL IVC. Patient continues to demonstrate bizarre behavior. Patient continues to come out of her room a makes random comments. She can be heard makes odd random comments in her room to herself (comments frequently contain cussing and make little sense). Patient has flight of ideas and pressured speech. Clinical Impression: Ayesha Positive for Amphetamines Medication recommendations made by the psychiatric medication provider Dr. Alireza GRAVES., includes: Zyprexa 5MG twice a day for mood stabilization/impulse control Cogentin 1MG daily to curb tremor side effects often associated with antipsychotic medications Impression/Plan: Recommendation to maintain FULL IVC. Patient continues to present in extremely manic state (yelling, screaming, irritable, pressured speech, flight of ideas). Dr. Murdock was consulted to care management of this patient; tending physicians in agreement with recommendations and disposition. Case management [facility] accepted the patient at 1430 for a requested arrival time of 1730.
== END 2020-04-02 17:41 ==
LOC: ER 18:04
DX: F30.2 Manic episode, severe with psychotic symptoms (principal); R00.0 Tachycardia, unspecified; R45.851 Suicidal ideations; F17.210 Nicotine dependence, cigarettes, uncomplicated; Z79.899 Other long term (current) drug therapy
CPT/HCPCS: 93005; 99285; 96372; 96374; 36415; 80307 ×4; 85025; 80053; 81001; 93010; J3490 ×8; J1200; J1630 ×3; J2060

== ENCOUNTER 2020-04-16 00:41 | Emergency (ER) | payer MEDICAID, OTHER ==
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
[2020-04-16] MEDS ORDERED: HALOPERIDOL LACTATE INJ 5 MG/1 ML VIAL IM ONE (01:32)
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
[2020-04-16] MEDS ORDERED: LORAZEPAM INJ 2 MG/1 ML VIAL IM ONE (01:33)
[2020-04-16 03:17] LABS: ABSOLUTE BASOPHILS # (AUTO) 0.1 10^3/uL (0.0-0.2); ABSOLUTE EOSINOPHILS # (AUTO) 0.2 10^3/uL (0.0-0.6); ABSOLUTE LYMPHOCYTES (AUTO) 2.8 10^3/uL (0.5-4.7); ABSOLUTE MONOCYTES (AUTO) 1.2 10^3/uL (0.1-1.4); ABSOLUTE NEUT (AUTO) 9.3 10^3/uL (1.7-8.2); BASOPHILS % (AUTO) 0.5 % (0-2); EOSINOPHILS % (AUTO) 1.8 % (0-6); HEMOGLOBIN 13.4 g/dL (12.0-15.5); LYMPHOCYTES % (AUTO) 20.5 % (13-45); MEAN CORPUSCULAR HEMOGLOBIN 31.6 pg (27.0-33.4); MEAN CORPUSCULAR HGB CONC 34.3 g/dL (32.0-36.0); MEAN CORPUSCULAR VOLUME 92 fl (80-97); PLATELET COUNT 262 10^3/uL (150-450); RED BLOOD COUNT 4.23 10^6/uL (3.72-5.28); RED CELL DISTRIBUTION WIDTH 13.6 % (11.5-14.0); SEGMENTED NEUTROPHILS % (AUTO) 68.2 % (42-78); TOTAL CELLS COUNTED % (AUTO) 100 %; WHITE BLOOD COUNT 13.7 10^3/uL (4.0-10.5)
[2020-04-16 03:33] LABS: ALBUMIN 4.6 g/dL (3.5-5.0); ALKALINE PHOSPHATASE 47 U/L (38-126); ANION GAP 10 (5-19); ASPARTATE AMINO TRANSFERASE 55 U/L (14-36); BILIRUBIN,TOTAL 1.2 mg/dL (0.2-1.3); BLOOD UREA NITROGEN 16 mg/dL (7-20); CALCIUM 8.9 mg/dL (8.4-10.2); CARBON DIOXIDE 25 mmol/L (22-30); CHLORIDE 100 mmol/L (98-107); CREATINE KINASE 876 U/L (30-135); GLUCOSE 100 mg/dL (75-110); POTASSIUM 3.4 mmol/L (3.6-5.0); TOTAL PROTEIN 7.8 g/dL (6.3-8.2)
[2020-04-16 03:34] LABS: ACETAMINOPHEN < 10 ug/mL (10-30); ALCOHOL < 10 mg/dL (NONE DETECTED); SALICYLATE < 1.0 mg/dL (2.0-20.0)
--- NOTE | 2020-04-16 13:23 | EKG REPORT ---
SEVERITY:- BORDERLINE ECG - SINUS RHYTHM BORDERLINE T ABNORMALITIES, INFERIOR LEADS : Confirmed by: Tree Hernandez MD 16-Apr-2020 13:22:43
--- NOTE | 2020-04-16 13:24 | ER Document Report ---
Doctor's Note Notes: 04/16/20 13:23 Patient is resting comfortably she is awake she is alert she offers no complaints at this time. Counseled patient on need for urinalysis. Patient states she cannot urinate. Nurse was notified that patient is agreeable to give a urine specimen. (DEVIKA MARRUFO)
[2020-04-16 13:36] LABS: APPEARANCE,URINE CLOUDY; BILIRUBIN,URINE NEGATIVE (NEGATIVE); COLOR,URINE AMBER; GLUCOSE, URINE NEGATIVE (NEGATIVE); KETONES,URINE 20 mg/dL (NEGATIVE); LEUKOCYTE ESTERASE,URINE NEGATIVE (NEGATIVE); NITRITE,URINE NEGATIVE (NEGATIVE); PROTEIN,URINE 30 mg/dL (NEGATIVE); UROBILINOGEN,URINE NEGATIVE mg/dL (<2.0)
[2020-04-16 13:48] LABS: URINE BARBITURATES SCREEN NEGATIVE; URINE BENZODIAZEPINES SCREEN NEGATIVE; URINE COCAINE SCREEN NEGATIVE; URINE MARIJUANA (THC) SCREEN NEGATIVE; URINE METHADONE SCREEN NEGATIVE; URINE PHENCYCLIDINE SCREEN NEGATIVE
--- NOTE | 2020-04-16 14:48 | PSYCHOLOGICAL NOTE ---
Psych Note - Psych Note Date seen by psych provider: 04/16/20 Time seen by psych provider: 11:40 Psych Note: Reason for Consult: AMS Patient is a 39 year old female who presented to the ED last evening via EMS for altered mental status. She denies any thoughts of wanting to harm herself. She reports she has been thinking about her children however she refuses to get in contact with the biological father who has custody of the children "I am never going to talk to him again... never." Patient is alert and orientated to person, place, time and circumstance. Mood is euthymic with congruent affect. Clinician notes patient was awoken for evaluation. Patient denies suicidal and homicidal ideations. Delusions are absent behaviors congruent with an intact reality based presentation ie organized and linear thought process. Eye contact is poor as patient mainly keeps her eyes closed as she is still waking up. Intellectual abilities appear to be within the average range. Conversational speech is quiet and difficult to hear at times. Attention and concentration are fair. Insight, judgment, impulse control are historically poor due to substance abuse Clinical Impression: Polysubstance abuse; Methamphetamines, opiates- severe Chart review: Schizoaffective disorder; bipolar type per history Impression/Plan: Patient is cleared from acute psychiatric services. She is no longer under the influence. This patient is well known to clinician and depa rtment. She has a reported history of mental health however she has been struggling with amphetamine abuse. Patient is not demonstrating or expressing any desire to change her habits. On 03/05/2020 and 04/02/2020 the patient was sent to [facility] under [facility]; she has been noncompliant with treatment recommendations. Patient does not have custody of her children. The patient is highly encouraged to follow mental health recommendations to add substance abuse treatment. Dr. Murdock was consulted on the care and management of this patient; attending physician is in agreement with recommendations and disposition.
--- NOTE | 2020-04-16 15:02 | ER Document Report ---
Doctor's Note Notes: 04/16/20 15:01 Patient is acting appropriately. She is alert and oriented x3. She has been seen, evaluated, and cleared by mental health Isai Shane, she stable for discharge. Discharge - Discharge Clinical Impression: Polysubstance abuse Condition: Good Disposition: HOME, SELF-CARE Additional Instructions: You have been evaluated both medical and behavioral health teams have been deemed appropriate for discharge. You are highly encouraged to follow through with outpatient substance abuse treatment. You have been provided local resources for detox facilities, local providers and mobile crisis contact information. NARCOTIC / OPIOD ABUSE: Narcotics and opiods are pain-relieving drugs that are often abused. They are addicting. Narcotics cause euphoria, but it often takes increasing amounts to "feel good" and avoid withdrawal symptoms. Overdose of narcotics causes small pupils, coma, and decreased breathing. It's a common cause of . Purity of street narcotics is unpredictable. Injection of narcotics is risky for abscesses, endocarditis (heart infection), pneumonia, and AIDS. Withdrawal from narcotics causes goose bumps, watery mouth, sweating, nasal congestion, muscle aches, abdominal cramps, vomiting, and diarrhea. There's often restlessness and confusion. Treatment programs are available, but you must make the decision to quit. Medication (such as clonidine) can be prescribed to control the symptoms of withdrawal. AMPHETAMINE / METHAMPHETAMINE ABUSE: Amphetamines are addicting stimulants. Amphetamines overstimulate the nervous system and give a false feeling of power and mastery. These drugs may be obtained as prescription pills for weight loss, narcolepsy, or attention-deficit disorder. More often they're bought as an illegal street drug, methamphetamine (crank, crystal, speed). Using amphetamines repeatedly can lead to serious medical problems including malnutrition, severe depression, and paranoia. It can take increasing amounts to feel good. Eventually, there will be a "burn out." When you go off amphetamines there is a period of depression that may last for weeks or even months. High doses of amphetamines can cause seizures, confusion, hallucinations, delusions, high blood pressure, muscle damage, heart damage, or sudden . Many times these deadly complications occur even with "normal" doses. Injection of amphetamines is risky for developing abscesses, endocarditis (heart infection), pneumonia, and AIDS. Withdrawal from amphetamines often causes anxiety, depression, and drug cravings. Some users become paranoid and psychotic. There may be cramps, nausea, and vomiting. Many treatment programs are available, but you must make the decision to quit. Medication can be prescribed to control the symptoms of amphetamine toxicity (beta blockers or benzodiazepines). Withdrawal symptoms may require tranquilizers. FOLLOW-UP CARE: If you have been referred to a physician for follow-up care, call the physicians office for an appointment as you were instructed or within the next two days. If you experience worsening or a significant change in your symptoms, notify the physician immediately or return to the Emergency Department at any time for re-evaluation. Referrals: [facility] [Outside] - Follow up as needed GUTIERREZ GARCIA MD [Primary Care Provider] - Follow up as needed
[2020-04-16 15:20] VITALS: BP 96/53
== END 2020-04-16 15:28 | disposition home or self-care (01) ==
LOC: ER 00:41
DX: F19.10 Other psychoactive substance abuse, uncomplicated (principal); R53.81 Other malaise; F17.200 Nicotine dependence, unspecified, uncomplicated
CPT/HCPCS: 93005; 99285; 96372; 36415; 80307 ×4; 82550; 84703; 85025; 80053; 81001; 93010; J1630; J2060

== ENCOUNTER → 2020-08-13 | Outpatient (CLI) | payer MEDICAID ==
[2020-08-13 14:21] LABS: ABSOLUTE BASOPHILS # (AUTO) 0.1 10^3/uL (0.0-0.2); ABSOLUTE EOSINOPHILS # (AUTO) 0.2 10^3/uL (0.0-0.6); ABSOLUTE LYMPHOCYTES (AUTO) 1.9 10^3/uL (0.5-4.7); ABSOLUTE MONOCYTES (AUTO) 0.6 10^3/uL (0.1-1.4); ABSOLUTE NEUT (AUTO) 3.6 10^3/uL (1.7-8.2); BASOPHILS % (AUTO) 1.2 % (0-2); EOSINOPHILS % (AUTO) 3.2 % (0-6); HEMATOCRIT 42.9 % (36.0-47.0); HEMOGLOBIN 14.5 g/dL (12.0-15.5); LYMPHOCYTES % (AUTO) 29.4 % (13-45); MEAN CORPUSCULAR HEMOGLOBIN 31.2 pg (27.0-33.4); MEAN CORPUSCULAR HGB CONC 33.7 g/dL (32.0-36.0); MEAN CORPUSCULAR VOLUME 92 fl (80-97); PLATELET COUNT 280 10^3/uL (150-450); RED BLOOD COUNT 4.64 10^6/uL (3.72-5.28); RED CELL DISTRIBUTION WIDTH 13.3 % (11.5-14.0); SEGMENTED NEUTROPHILS % (AUTO) 56.2 % (42-78); TOTAL CELLS COUNTED % (AUTO) 100 %; WHITE BLOOD COUNT 6.3 10^3/uL (4.0-10.5)
[2020-08-13 14:48] LABS: ALBUMIN 4.9 g/dL (3.5-5.0); ALKALINE PHOSPHATASE 59 U/L (38-126); ANION GAP 9 (5-19); ASPARTATE AMINO TRANSFERASE 28 U/L (14-36); BLOOD UREA NITROGEN 14 mg/dL (7-20); CALCIUM 10.1 mg/dL (8.4-10.2); CARBON DIOXIDE 27 mmol/L (22-30); CHLORIDE 102 mmol/L (98-107); CHOLESTEROL 184.85 mg/dL (0-200); GLUCOSE 98 mg/dL (75-110); LITHIUM 0.6 mEq/L (0.6-1.2); POTASSIUM 4.7 mmol/L (3.6-5.0); TOTAL PROTEIN 8.1 g/dL (6.3-8.2); TRIGLYCERIDES 101 mg/dL (<150)
[2020-08-13 14:59] LABS: DIRECT LDL 75 mg/dL (<100)
[2020-08-13 15:04] LABS: FREE T4 (FREE THYROXINE) 0.72 ng/dL (0.78-2.19)
--- OUTSIDE RECORDS SUMMARY | 2020-08-14 15:37 | XMS REPORT ---
:1980 [facility] [address] [place] [address] Care Team Providers Name Role Phone PCP, PER PATIENT Primary Care Physician Unavailable FLORENTIN TORIBIO Attending Clinician Unavailable FLORENTIN TORIBIO Admitting Clinician Unavailable Allergies, Adverse Reactions, Alerts Allergy Name Allergy Status Severity Reaction(s) Onset Inactive Treat ing Comments Type Date Date Clinician Sulfa Propensity Active High Hives (Sulfonamide to adverse 6-14 Antibiotics) reactions 00:00: to drug 00 Penicillins Propensity Active High Hives to adverse 9-19 reactions 00:00: to drug 00 Medications Ordered Filled Start Stop Current Ordering Indication Dosage Frequency Signature Comments Components Medication Medication Date Date Medication? Clinician (SIG) Name Name hydrocortis 2020- No Apply Apply one 1 % 03-23 topically topicall y cream 00:00: 23:59 Three (3) Three (3) 00 :00 times a times a day. day. risperiDONE 2019- No 1mg Take 1 Take 1 (RISPERDAL) 03-23 tablet (1 tabl et (1 1 MG tablet 00:00: 23:59 mg total) mg total) 00 :00 by mouth by mouth Two (2) Two (2) times a times a day. day. lithium 2019- No 450mg Take 1 Take 1 (ESKALITH 03-23 tablet tablet CR) 450 MG 00:00: 23:59 (450 mg (450 m g ER tablet 00 :00 total) by total) by mouth mouth every every twelve twelve (12) (12) hours. hours. zolpidem 2019- No 5mg Take 1 Take 1 (AMBIEN) 5 03-23 tablet (5 table t (5 MG tablet 00:00: 23:59 mg total) mg to mihir) 00 :00 by mouth by mouth nightly as nightly needed for as needed sleep. for sleep. zolpidem 2019-0 2019- No 5mg Take 1 Take 1 (AMBIEN) 5 03-23 tablet (5 table t (5 MG tablet 00:00: 00:00 mg total) mg to mihir) 00 :00 by mouth by mouth nightly as nightly needed for as needed sleep for for sleep up to 22 for up to days. 22 days. hydrocortis 2019-2019- No Topical, 3 one 1 % 03-2224 times a cream 09:00: 08:59 day 00 :00 (standard) , First dose on 03/22/20 at 0900, For 3 days
Ap ply to bug bites of lower extremitie s
zolpidem 2019-0 No 5mg 5 mg, (AMBIEN) 03-20 Oral, tablet 5 mg 21:00: Nightly, 00 First dose (after last modificati on) on Mon03/20/20 at 2100
Ma y administer up to Midnight.< br>Routine lithium No 450mg 450 mg, (ESKALITH 03-19 Oral, CR) ER 21:00: Every 12 tablet 450 00 hours mg scheduled, First dose on Mar 03/19/20 at 2100
Ro utine clonazePAM No 1mg 1 mg, (KlonoPIN) 03-18 Oral, 2 tablet 1 mg 09:00: 11:43 times a 00 :43 day (standard) , First dose on Mon03/18/20 at 0900
Ro utine nicotine 2019-0 No 1{patch 1 patch, (NICODERM 15 } Transderma CQ) 14 12:16: l, mg/24 hr 42 Administer patch 1 over 24 patch Hours, Daily PRN, smoking cessation, Starting 03/16/20 at 1216
RA: Dispose drug and drug packaging in [facility] waste container.
lithium 2019-2019- No 300mg 300 mg, (LITHOBID) 03-15 Oral, ER tablet 21:00: 10:34 Every 12 300 mg 00 :57 hours scheduled, First dose on 03/15/20 at 2100
Ro utine risperiDONE 2019-0 No 1mg 1 mg, (RisperDAL) 03-15 Oral, 2 tablet 1 mg 14:00: times a 00 day (standard) , First dose on 03/15/20 at 1400
Ro utine clonazePAM 2019-0 2020- No 2mg 2 mg, (KlonoPIN) 03-15 06-17 Oral, 2 tablet 2 mg 14:00: 05:05 times a 00 :06 day (standard) , First dose on 03/15/20 at 1400, For 7 doses
R outine nicotine 2020-0 No 2mg 2 mg, polacrilex 03-15 Buccal, (NICORETTE) 10:27: Every 2 gum 2 mg 24 hours PRN, smoking cessation, Starting 03/15/20 at 1027
RA: Dispose drug and drug packaging in [facility] waste container.
Routin e ondansetron 2019-0 No 4mg 4 mg, (ZOFRAN-ODT - Oral, ) 11:57: Every 6 disintegrat 39 hours PRN, ing tablet nausea, 4 mg vomiting, Starting 03/14/20 at 1157
Ro utine magnesium 2019-0 No 300mL 300 mL, citrate 6- Oral, solution 11:57: Daily PRN, 300 mL 37 constipati on, Starting 03/14/20 at 1157
Fo r constipati on NOT relieved by docusate.< br>Routine docusate 2019-0 No 100mg 100 mg, sodium 6- Oral, 2 (COLACE) 11:57: times a capsule 100 36 day PRN, mg constipati on, Starting 03/14/20 at 1157
Ro utine hydroxyzine 2019-0 No 50mg 50 mg, (ATARAX) 6- Oral, capsule/tab 11:57: Every 4 let 50 mg 34 hours PRN, other, anxiety, Starting 03/14/20 at 1157
Ro utine loperamide 2020-0 No 4mg 4 mg, (IMODIUM) 6- Oral, capsule 4 11:57: Every 6 mg 33 hours PRN, diarrhea, Starting 03/14/20 at 1157
Ro utine ibuprofen 2019-0 No 400mg 400 mg, (MOTRIN) 6- Oral, tablet 400 11:57: Every 4 mg 28 hours PRN, pain,moder ate (4-6), other, fever (> 39.0 C), Starting 03/14/20 at 1157
Gi ve with Food or Milk
Ro utine acetaminoph 2019-0 No 650mg 650 mg, en 6- Oral, (TYLENOL) 11:57: Every 4 tablet 650 27 hours PRN, mg pain,mild (1-3), Starting 03/14/20 at 1157
AD ULT MAX: NOT TO EXCEED 4GM ACETAMINOP HEN IN 24HRS
R outine diphenhydrA No 50mg 50 mg, MINE 6 Intramuscu (BENADRYL) 11:57: lar, Every injection 21 6 hours 50 mg PRN, other, for EPS/tremor s, given with Haldol and Ativan, Starting 03/14/20 at 1157, For 1 dose
If cannot take PO Benadryl&n bsp;PROTEC T FROM LIGHT<b r>Routine haloperidol No 5mg 5 mg, lactate 6-13 Intramuscu (HALDOL) 11:57: lar, Every injection 5 21 6 hours mg PRN, other, psychotic agitation, give with ativan and benadryl, Starting 03/14/20 at 1157
If unable to take PO haloperido l. [place] OTECT FROM LIGHT
R outine LORazepam 0 No 2mg 2 mg, (ATIVAN) 6-13 Intramuscu injection 2 11:57: lar, Every mg 21 6 hours PRN, other, agitation, give with Haldol and Benadryl. NOT for anxiety, Starting 03/14/20 at 1157
If unable to take PO lorazepam.
Routin e diphenhydrA 2019- No 25mg 25 mg, MINE 03-14 06-13 Intramuscu (BENADRYL) 06:40: 06:48 lar, Once, injection 00 :00 Sat 25 mg 03/14/20 at 0640, For 1 dose
[place] OTECT FROM LIGHT
S TAT haloperidol 2019- No 5mg 5 mg, lactate 03-14 Intramuscu (HALDOL) 06:40: 06:47 lar, Once, injection 5 00 :00 Sat mg 03/14/20 at 0640, For 1 dose
[place] OTECT FROM LIGHT
S TAT LORazepam 2019- No 2mg 2 mg, (ATIVAN) 03-14 Intramuscu injection 2 06:39: 06:48 lar, Once, mg 00 :00 03/14/20 at 0640, For 1 dose
ST AT risperidone No Take by Take b y (RISPERDAL mouth mouth ORAL) nightly. nightly. escitalopra No Take by Take b y m oxalate mouth. mouth. (LEXAPRO ORAL) Problems Condition Condition Condition Status Onset Resolution Last Treatin g Comments Name Details Category Date Date Treatment Clinician Date No known No known [id number] active active problems problems Procedures Procedure Date / Time Performed Performing Clinician Devic e LITHIUM LEVEL 2020-03-23 06:15:00 Klaus Hampton LITHIUM LEVEL 2020-03-19 06:16:00 Klaus Hampton ECG 12-LEAD 2020-03-14 12:21:10 Vitaliy Altamirano RECREATION THERAPY EVAL AND 2020-03-14 11:57:14 Gisele Toribio TREAT COMPREHENSIVE METABOLIC PANEL 2020-03-14 07:08:00 Vitaliy Altamirano ETHANOL 2020-03-14 07:08:00 Vitaliy Altamirano TSH 2020-03-14 07:08:00 Vitaliy Altamirano CBC W/ AUTO DIFF 2020-03-14 07:08:00 Vitaliy Altamirano EXTRA TUBES 2020-03-14 07:08:00 Vitaliy Altamirano ORANGE SST EXTRA TUBE 2020-03-14 07:08:00 Vitaliy Altamirano URINALYSIS 2020-03-14 06:36:00 Vitaliy Altamirano DRUG SCREEN, URINE 2020-03-14 06:36:00 Vitaliy Altamirano Results Test Description Test Time Test Comments Text Results Atomic Results Result Comments [place] Level (03/23/2020 6:15 AM EDT) 2020-03-23 06:15:00 Test Item Value Reference Range Comments [place] Lvl (test code = [place] Lvl) 0.6 mmol/L 0.5 - 1.0 mmol/L [place] Level (03/19/2020 6:16 AM EDT)2020-03-19 06:16:00 Test Item Value Reference Range Comments [place] Lvl (test code = [place] Lvl) 0.4 mmol/L 0.5 - 1.0 mmol/L ECG 12 lead (Adult) (03/14/2020 12:21 PM EDT)2020-03-14 12:21:10 Test Item Value Reference Range Comments EKG Systolic BP (test code = EKG Systolic BP) EKG Diastolic BP (test code = EKG Diastolic BP) EKG Ventricular Rate (test code = EKG Ventricular 90 BPM Rate) EKG Atrial Rate (test code = EKG Atrial Rate) 90 BPM EKG P-R Interval (test code = EKG P-R Interval) 140 ms EKG QRS Duration (test code = EKG QRS Duration) 84 ms EKG Q-T Interval (test code = EKG Q-T Interval) 366 ms EKG QTC Calculation (test code = EKG QTC 447 ms Calculation) EKG Calculated P [place] (test code = EKG Calculated 75 degrees [place]) EKG Calculated R [place] (test code = EKG Calculated 68 degrees [place]) EKG Calculated T [place] (test code = EKG Calculated 31 degrees [place]) QTC Fredericia (test code = QTC Fredericia) 419 ms Comprehensive Metabolic Panel (03/14/2020 7:08 AM EDT)2020-03-14 07:08:00 Test Item Value Reference Range Comments Sodium (test code = Sodium) 146 mmol/L 135 - 145 mmol/L Potassium (test code = Potassium) 4.1 mmol/L 3.5 - 5.0 mmol /L Chloride (test code = Chloride) 109 mmol/L 95 - 108 mmol/L Anion Gap (test code = Anion Gap) 17 mmol/L 10 - 17 mmol/L CO2 (test code = CO2) 20.1 mmol/L 21.0 - 30.0 mmol/L BUN (test code = BUN) 11 mg/dL 5 - 23 mg/dL Creatinine (test code = Creatinine) 0.67 mg/dL 0.44 - 1.00 mg/dL BUN/Creatinine Ratio (test code = 16 BUN/Creatinine Ratio) EGFR CKD-EPI Non-, >90 Undefined mL/ min/1.73m2 Female (test code = EGFR CKD-EPI Non-, Female) EGFR CKD-EPI , Female >90 Undefined mL/min/1.73m2 (test code = EGFR CKD-EPI , Female) Glucose (test code = Glucose) 100 mg/dL 70 - 110 mg/dL Calcium (test code = Calcium) 8.3 mg/dL 8.4 - 10.2 mg/dL Albumin (test code = Albumin) 4.3 g/dL 3.5 - 5.2 g/dL Total Protein (test code = Total 7.0 g/dL 6.0 - 8.5 g/dL Protein) Total Bilirubin (test code = Total <0.2 0.2 - 1.4 mg/ dL Bilirubin) AST (test code = AST) 19 U/L 11 - 35 U/L ALT (test code = ALT) 14 U/L 10 - 40 U/L Alkaline Phosphatase (test code = 51 U/L 39 - 117 U/L Alkaline Phosphatase) Ethanol (03/14/2020 7:08 AM EDT)2020-03-14 07:08:00 Test Item Value Reference Range Comments Alcohol, Ethyl (test code = Alcohol, Ethyl) 116.4 mg/dL <=10 .0 mg/dL TSH (03/14/2020 7:08 AM EDT)2020-03-14 07:08:00 Test Item Value Reference Range Comments TSH (test code = TSH) 1.500 uIU/mL 0.270 - 4.200 uIU/mL CBC w/ Differential (03/14/2020 7:08 AM EDT)2020-03-14 07:08:00 Test Item Value Reference Range Comments WBC (test code = WBC) 6.5 10*9/L 4.0 - 10.0 10*9/L RBC (test code = RBC) 4.45 10*12/L 4.00 - 5.40 10*12/L HGB (test code = HGB) 13.7 g/dL 12.0 - 15.5 g/dL HCT (test code = HCT) 40.9 % 35.0 - 46.0 % MCV (test code = MCV) 92.0 fL 80.0 - 99.0 fL MCH (test code = MCH) 30.9 pg 26.0 - 34.0 pg MCHC (test code = MCHC) 33.6 g/dL 32.0 - 36.5 g/dL RDW (test code = RDW) 13.7 % 11.5 - 14.5 % MPV (test code = MPV) 7.7 fL 9.0 - 12.4 fL Platelet (test code = Platelet) 255 10*9/L 150 - 450 10*9/L Neutrophils % (test code = Neutrophils %) 55.7 % Lymphocytes % (test code = Lymphocytes %) 33.7 % Monocytes % (test code = Monocytes %) 8.8 % Eosinophils % (test code = Eosinophils %) 1.6 % Basophils % (test code = Basophils %) 0.2 % Absolute Neutrophils (test code = Absolute 3.6 10*9/L 2.0 - 8.0 10*9/L Neutrophils) Absolute Lymphocytes (test code = Absolute 2.2 10*9/L 1.2 - 4.3 10*9/L Lymphocytes) Absolute Monocytes (test code = Absolute 0.6 10*9/L 0.3 - 1 .0 10*9/L Monocytes) Absolute Eosinophils (test code = Absolute 0.1 10*9/L 0.0 - 0.5 10*9/L Eosinophils) Absolute Basophils (test code = Absolute 0.0 10*9/L 0.0 - 0 .2 10*9/L Basophils) ORANGE SST EXTRA TUBE (03/14/2020 7:08 AM EDT)2020-03-14 07:08:00ORANGE SST EXTRA TUBE (03/14/2020 7:08 AM EDT)SpecimenBloodNarrativePerformed AtCollected and received in lab.[facility] LABORATORYPerforming OrganizationAddressCity/State/ZipcodePhone NumberROUND TOP [id number] [place], [place] [phone] (03/14/2020 6:36 AM EDT) 2020-03-14 06:36:00 Test Item Value Reference Range Comments Color, UA (test code = Color, UA) Yellow Clarity, UA (test code = Clarity, UA) Clear Specific Walker, UA (test code = Specific 1.008 1.000 -1.030 Walker, UA) pH, UA (test code = pH, UA) 5.0 5.0-8.0 Leukocyte Esterase, UA (test code = Leukocyte Negative Ne gative Esterase, UA) Nitrite, UA (test code = Nitrite, UA) Negative Negative Protein, UA (test code = Protein, UA) Negative Negative Glucose, UA (test code = Glucose, UA) Negative Negative Ketones, UA (test code = Ketones, UA) Negative Negative Urobilinogen, UA (test code = Urobilinogen, UA) 0.2 mg/dL 0.2 - 1.0 mg/dL Bilirubin, UA (test code = Bilirubin, UA) Negative Negati ve Blood, UA (test code = Blood, UA) Negative Negative RBC, UA (test code = RBC, UA) 0 /HPF 0 - 3 /HPF WBC, UA (test code = WBC, UA) 1 /HPF 0 - 5 /HPF Squam Epithel, UA (test code = Squam Epithel, UA) 1 /HPF 0 - 4 /HPF Bacteria, UA (test code = Bacteria, UA) None Seen None See n /HPF Hyaline Casts, UA (test code = Hyaline Casts, UA) 0 /LPF 0 - 2 /LPF Drug Screen, Urine (03/14/2020 6:36 AM EDT)2020-03-14 06:36:00 Test Item Value Reference Range Comments Amphetamine Screen, Ur (test code = Amphetamine Negative Negative Screen, Ur) Barbiturate Screen, Ur (test code = Barbiturate Negative Negative Screen, Ur) Benzodiazepine Screen, Urine (test code = Negative Negati ve Benzodiazepine Screen, Urine) Cocaine(Metab.)Screen, Urine (test code = Negative Negati ve Cocaine(Metab.)Screen, Urine) Cannabinoid Scrn, Ur (test code = Cannabinoid Scrn, Negative Negative Ur) Opiate Scrn, Ur (test code = Opiate Scrn, Ur) Negative Ne gative PCP Screen, Urine (test code = PCP Screen, Urine) Negative Negative Methadone Screen, Urine (test code = Methadone Negative N egative Screen, Urine) Oxycodone Screen, Ur (test code = Oxycodone Screen, Negative Negative Ur) Tricyclic Antidepressant, Urine (test code = Negative Neg ative Tricyclic Antidepressant, Urine) Encounters Start End Encounter Admission Attending Care Care Encounter ID Date/Time Date/Time Type Type Clinicians Facility Department 2020-03-25 2020-03-25 Outpatient [facility] [id number] 00:00:00 00:00:00 2020-03-25 2020-03-25 [facility] [id number] 00:00:00 00:00:00 2020-03-14 2020-03-24 Inpatient ER KELSEY TORIBIO [id number] 06:21:58 10:53:00 GISELE 2020-03-14 2020-03-24 [facility]patient [facility] [id number] 06:21:58 10:53:00 Payers Payer Name Policy Type Policy Number Effective Date Expiration D ate MEDICAID LME [employer] [id number] 2020 00:00:00 [facility] Plan of Treatment Planned Activity Planned Date Details Comments Future Scheduled Test [code = ] Future Scheduled Test [code = ] Future Scheduled Test [code = ] Future Scheduled Test [code = ] Social History Social Habit Start Date Stop Date Comments Tobacco smoking status NMIS 2020-03-16 00:00:00 2020-03-16 00:00 :00 Alcohol intake 2020-03-16 00:00:00 2020-03-16 00:00:00 History SDOH Education 2020-03-16 00:00:00 2020-03-16 00:00:00 History SDOH Financial 2020-03-16 00:00:00 2020-03-16 00:00:00 Vital Signs Vital Name Observation Time Observation Value Comments Systolic blood pressure 2020-03-24 07:32:00 95 mm[Hg] Diastolic blood pressure 2020-03-24 07:32:00 62 mm[Hg] Heart rate 2020-03-24 07:32:00 83 /min Body temperature 2020-03-24 07:32:00 36.39 Kerline Respiratory rate 2020-03-24 07:32:00 18 /min Oxygen saturation in Arterial blood by 2020-03-24 07:32:00 99 % Pulse oximetry Body height 2020-03-14 06:26:00 165.1 cm Body weight 2020-03-14 06:26:00 58.968 kg
== END ==
LOC: OD 13:38
PROVIDERS: ATTEND Physician Assistant
DX: F25.0 Schizoaffective disorder, bipolar type (principal); Z79.899 Other long term (current) drug therapy
CPT/HCPCS: 36415; 80053; 80061; 80178; 83036; 84439; 84443; 85025